=== PATIENT | male | born 1980 | race American Indian/Alaskan Native ===

== ENCOUNTER 2017-11-11 19:38 | Emergency (ER) | payer BC ==
[2017-11-11 19:50] VITALS: TEMP 98.2
[2017-11-11] MEDS ORDERED: Levalbuterol 1.25 MG/3 ML Inhal Soln UD IH STA ×4 (20:11→22:16)
--- NOTE | 2017-11-11 21:48 | ED PDOC ---
Arrival/HPI - General Chief Complaint: Shortness Of Breath Time Seen by Provider: 11/11/17 20:11 Historian: Patient - History of Present Illness Narrative History of Present Illness (Text): 11/11/17 21:36 37yo male with pmhx of Asthma who present with complaint of yellow productive cough and SOB x 2weeks. States he saw his PMD and he gave him albuterol inhaler. Notes that he is using the inhaler without relieve. He denies fever, chills, sick contact, diaphoresis, travel. He is not steroid dependent. Never admitted for asthma. Past Medical History - Provider Review Nursing Documentation Reviewed: Yes - Infectious Disease Hx of Infectious Diseases: None - Cardiac Hx Cardiac Disorders: No - Psychiatric Hx Substance Use: No - Surgical History Hx Appendectomy: Yes - Anesthesia Hx Anesthesia: No Family/Social History - Physician Review Nursing Documentation Reviewed: Yes Family/Social History: Unknown Family HX Smoking Status: Current Some Days Smoker Hx Alcohol Use: Yes Frequency of alcohol use: Socially Hx Substance Use: No Allergies/Home Meds Allergies/Adverse Reactions: Allergies No Known Allergies Allergy (Verified 11/11/17 19:50) Review of Systems - Physician Review All systems were reviewed & negative as marked: Yes - Review of Systems Constitutional: Normal Eyes: Normal ENT: Normal Respiratory: SOB, Cough, Sputum Cardiovascular: Normal Gastrointestinal: Normal Genitourinary Male: Normal Musculoskeletal: Normal Skin: Normal Neurological: Normal Endocrine: Normal Hemo/Lymphatic: Normal Psychiatric: Normal Physical Exam Vital Signs Reviewed: Yes Vital Signs Temp Pulse Resp BP Pulse Ox 11/11/17 21:19 96 H 18 111/79 100 11/11/17 19:49 98.2 F 98 H 19 135/97 H 99 Temperature: Afebrile Blood Pressure: Normal Pulse: Regular Respiratory Rate: Normal Appearance: Positive for: Well-Appearing, Non-Toxic, Comfortable Pain Distress: None Mental Status: Positive for: Alert and Oriented X 3 - Systems Exam Head: Present: Atraumatic, Normocephalic Pupils: Present: PERRL Extroacular Muscles: Present: EOMI Conjunctiva: Present: Normal Mouth: Present: Moist Mucous Membranes Neck: Present: Normal Range of Motion Respiratory/Chest: Present: Good Air Exchange, Wheezes (Diffuse expiratory wheeze), Decreased Breath Sounds. No: Clear to Auscultation, Respiratory Distress, Accessory Muscle Use, Retracting, Rhonchi, Tachypneic Cardiovascular: Present: Regular Rate and Rhythm, Normal S1, S2. No: Murmurs Abdomen: No: Tenderness, Distention, Peritoneal Signs Back: Present: Normal Inspection Upper Extremity: Present: Normal Inspection. No: Cyanosis, Edema Lower Extremity: Present: Normal Inspection. No: Edema Neurological: Present: GCS=15, CN II-XII Intact, Speech Normal Skin: Present: Warm, Dry, Normal Color. No: Rashes Psychiatric: Present: Alert, Oriented x 3, Normal Insight, Normal Concentration Medical Decision Making ED Course and Treatment: 11/11/17 23:06 37yo male in ED with cough, SOB x 6days. He was in mild respiratory distress on arrival. He had diffuse expiratory wheeze with decrease BS. Xopenex x3 Prednisone CXR On re evaluation he continued to wheeze and more xopenex was ordered and promethazine given. On re evaluation his lung was CTA b/l. He was speaking in full sentence without distress. He asked to be DC home CXR NAD He will be DC home with prednisone, tessalon and zpack. Referred to his PMD - RAD Interpretation Radiology Orders: 11/11/17 20:41 CHEST PORTABLE [RAD] Stat - Medication Orders Current Medication Orders: Discontinued Medications Levalbuterol HCl (Xopenex) 1.25 mg IH STAT STA Stop: 11/11/17 20:12 Last Admin: 11/11/17 21:02 Dose: 1.25 mg Levalbuterol HCl (Xopenex) 1.25 mg IH STAT STA Stop: 11/11/17 20:14 Levalbuterol HCl (Xopenex) 1.25 mg IH STAT STA Stop: 11/11/17 20:42 Prednisone (Prednisone Tab) 60 mg PO STAT ONE Stop: 11/11/17 20:14 Last Admin: 11/11/17 21:00 Dose: 60 mg Disposition/Present on Arrival - Present on Arrival Any Indicators Present on Arrival: No History of DVT/PE: No History of Uncontrolled Diabetes: No Urinary Catheter: No History of Decub. Ulcer: No History Surgical Site Infection Following: None - Disposition Have Diagnosis and Disposition been Completed?: Yes Diagnosis: Asthma attack Disposition: HOME/ ROUTINE Disposition Time: 11:20 Patient Plan: Discharge Condition: STABLE Discharge Instructions (ExitCare): Asthma, Adult (DC) Additional Instructions: Follow up with your Doctor Return to ED for any new or worsening symptoms Prescriptions: Azithromycin [Zithromax] 250 mg PO DAILY #4 tab Benzonatate [Tessalon Perles] 100 mg PO TID #20 sgl Prednisone 50 mg PO DAILY #5 tablet Referrals: Mel Pastrana MD [Primary Care Provider] - Follow up with primary Forms: [employer] (Irish), WORK NOTE
[2017-11-11] MEDS ORDERED: Promethazine 6.25 MG/5 ML CUP PO STA (22:16)
[2017-11-11 23:56] VITALS: BP 111/69; PULSE 72; RESP 17; O2SAT 99
--- NOTE | 2017-11-12 10:02 | RAD ---
Date of service: 11/11/2017 HISTORY: Cough COMPARISON: No prior. FINDINGS: LUNGS: The lungs are well inflated and clear. PLEURA: No significant pleural effusion identified, no pneumothorax apparent. CARDIOVASCULAR: Normal. OSSEOUS STRUCTURES: No significant abnormalities. VISUALIZED UPPER ABDOMEN: Normal. OTHER FINDINGS: None. IMPRESSION: No active pulmonary disease.
--- NOTE | 2017-11-12 16:09 | CARD ---
APPROVED REPORT Date of service: 11/11/2017 EKG Measurement Heart [id number] <Conclusion> Sinus tachycardia Otherwise normal ECG
== END 2017-11-11 23:56 | disposition home or self-care (01) ==
LOC: ED 19:38
DX: J45.909 Unspecified asthma, uncomplicated (principal); F17.210 Nicotine dependence, cigarettes, uncomplicated